=== PATIENT | female | born 1945 | race Asian ===

== ENCOUNTER 2017-11-09 19:17 | Emergency (ER) | payer MEDICARE, MEDICAID ==
[~2017-11-09] VITALS: Ht 165.1 cm; Wt 81.6 kg
[2017-11-09] MEDS ORDERED: cloNIDine HCL 0.1 MG TAB ONE (19:40)
[2017-11-09] MEDS ORDERED: cloNIDine HCL 0.1 MG TAB PO ONE (19:45)
[2017-11-09 22:12] VITALS: BP 181/61
[2017-11-09] MEDS ORDERED: MORPHINE SULFATE 8mg/ml INJ SDV IM ONE (22:15)
[2017-11-09] MEDS ORDERED: ONDANSETRON HCL 4 MG/2 ML VIAL IM ONE (22:45)
[2017-11-09] MEDS ORDERED: ONDANSETRON HCL 4 MG/2 ML VIAL ONE (22:46)
== END 2017-11-09 23:16 | disposition home or self-care (01) ==
LOC: ER 19:17
DX: M25.551 Pain in right hip (principal); E11.9 Type 2 diabetes mellitus without complications; I10 Essential (primary) hypertension; E78.00 Pure hypercholesterolemia, unspecified
CPT/HCPCS: 73502; 82962; 96372; 99284; J2270; J2405

== ENCOUNTER 2020-03-27 04:28 | Inpatient (IN) | payer MEDICARE, MEDICAID ==
[~2020-03-27] VITALS: Ht 160 cm; Wt 89.7 kg
[2020-03-27] MEDS ORDERED: NITROGLYCERIN 50MG/250ML 250 ML IV ONE (06:48)
[2020-03-27 06:51] LABS: Basophils # (auto) 0 10 ^3/uL (0-0.2); Basophils % (auto) 0.3 % (0.0-2.0); Eosinophils # (auto) 0.1 10 ^3/uL (0-0.8); Eosinophils % (auto) 1.3 % (0.0-7.0); Hematocrit 32.3 % (36.0-46.0); Hemoglobin 10.5 g/dL (12.2-16.2); Lymphocytes # (auto) 0.7 10 ^3/uL (0.4-5.4); Lymphocytes % (auto) 8.2 % (10.0-50.0); Mean Corpuscular Hemoglobin 30.9 pg (28.0-32.0); Mean Corpuscular Hgb Conc. 32.5 g/dL (32.0-36.0); Mean Corpuscular Volume 95.3 fL (80.0-100.0); Monocytes # (auto) 0.6 10 ^3/uL (0-1.3); Monocytes % (auto) 7.6 % (0.0-12.0); Neutrophils # (auto) 6.8 10 ^3/uL (1.6-8.6); Neutrophils % (auto) 82.6 % (37.0-80.0); Platelet Count (auto) 304 10^3/uL (140-450); Red Blood Cells 3.39 10^6/uL (4.0-5.20); Red Cell Distribution Width 17.6 % (11.8-14.3); White Blood Cell 8.2 10^3/uL (4.4-10.8)
[2020-03-27] MEDS ORDERED: HEPARIN SODIUM (PORCINE) 5000 UNITS/ML 1ML VIAL IV ONE (07:00)
[2020-03-27 07:08] LABS: Albumin 2.7 g/dL (3.4-5.0); Anion Gap 8 (5-15); Blood Urea Nitrogen 36 mg/dL (7-18); Calcium 8.2 mg/dL (8.5-10.1); Carbon Dioxide 27 mmol/L (21-32); Chloride 96 mmol/L (98-107); Glucose 142 mg/dL (74-106); Potassium 3.9 mmol/L (3.5-5.1); Sodium 131 mmol/L (136-145)
[2020-03-27 07:12] LABS: INR 0.92 (0.9-1.15); Partial Thromboplastin Time 27.7 sec (23.0-31.2)
[2020-03-27 07:14] LABS: Alanine Aminotransferase 29 U/L (13-56); Alkaline Phosphatase 78 U/L (45-117); Aspartate Aminotransferase 22 U/L (15-37); BUN/Creatinine Ratio 5.4; Bilirubin, Total 0.5 mg/dL (0.2-1.0); GFR African American 8 mL/min; GFR Non-African American 6 mL/min; Total Protein 6.8 g/dL (6.4-8.2)
[2020-03-27] MEDS ORDERED: ANGIOMAX 250 MG VIAL IV ONE (09:46)
[2020-03-27] MEDS ORDERED: HEPARIN SODIUM (PORCINE) 5000 UNITS/ML 1ML VIAL ONE (09:46)
[2020-03-27] MEDS ORDERED: fentaNYL CITRATE 100 MCG/2 ML VL ONE (09:47)
[2020-03-27] MEDS ORDERED: MIDAZOLAM HCL 1MG/1ML-2 ML VIAL ONE (09:47)
[2020-03-27] MEDS ORDERED: VERAPAMIL 2.5MG/ML INJ 2ML VIAL IV ONE (09:47)
[2020-03-27] MEDS ORDERED: SODIUM CHL 0.9% 50 ML ONE (09:47)
[2020-03-27] MEDS: METOPROLOL TARTRATE 25 MG TAB PO SCH ×2 (10:00→22:53)
[2020-03-27] MEDS: CLOPIDOGREL BISULFATE 75 MG TAB PO SCH (10:00)
[2020-03-27] MEDS: NIFEdipine ER 30 MG TAB PO SCH (10:00)
[2020-03-27] MEDS ORDERED: IODIXANOL 320MG/ML 100ML BTL IV ONE ×2 (10:04→10:39)
[2020-03-27] MEDS ORDERED: LIDOCAINE 2%HCL (LOCAL ANESTH.) INJ 20ML MDV ONE (10:04)
[2020-03-27] MEDS ORDERED: CLOPIDOGREL 300 MG TAB ONE (10:48)
[2020-03-27 14:00] VITALS: BP 116/59
[2020-03-27] MEDS: ASPirin 81 mg TAB PO SCH (14:19)
[2020-03-27] MEDS: RANOLAZINE ER 500 MG TAB PO SCH ×2 (14:20→22:53)
[2020-03-27 17:00] VITALS: BP 109/51
[2020-03-27] MEDS ORDERED: GABA100C9 PO (18:39)
[2020-03-27] MEDS ORDERED: ASPI325T4 PO (18:39)
[2020-03-27] MEDS ORDERED: ATOR80TA PO (18:39)
[2020-03-27] MEDS ORDERED: ISOS60TA24 PO (18:39)
[2020-03-27] MEDS ORDERED: ACET1CAP14 PO (18:39)
[2020-03-27] MEDS ORDERED: CLOP75TA28 PO (18:39)
[2020-03-27] MEDS ORDERED: FURO20TA3 PO (18:39)
[2020-03-27] MEDS ORDERED: LISI-275 PO (18:39)
[2020-03-27] MEDS ORDERED: METO25TA93 PO (18:39)
[2020-03-27] MEDS ORDERED: LEVO25TA49 PO (18:39)
[2020-03-27] MEDS ORDERED: NITR0.4S29 SL (18:47)
[2020-03-27] MEDS ORDERED: FERR-20 PO (18:47)
[2020-03-27] MEDS ORDERED: INSU1INJ19 SC (18:47)
[2020-03-27] MEDS ORDERED: RANO1000 PO (18:47)
[2020-03-27] MEDS ORDERED: TRAV0.00 EACHEYE (18:47)
[2020-03-27] MEDS ORDERED: INSU100I49 SC (18:50)
[2020-03-27 22:00] VITALS: BP_SYST 143; BP_DIAS 60; BP_DIAS 68
[2020-03-27] MEDS ORDERED: ATORVASTATIN 20 MG TAB PO SCH (22:00)
[2020-03-28 05:29] VITALS: BP 138/57
[2020-03-28] MEDS: NIFEdipine ER 30 MG TAB PO SCH (10:00)
[2020-03-28] MEDS: ASPirin 81 mg TAB PO SCH (10:21)
[2020-03-28] MEDS: METOPROLOL TARTRATE 25 MG TAB PO SCH (10:23)
[2020-03-28] MEDS: CLOPIDOGREL BISULFATE 75 MG TAB PO SCH (10:23)
[2020-03-28] MEDS: RANOLAZINE ER 500 MG TAB PO SCH (10:24)
[2020-03-28 14:30] VITALS: BP 134/68
== END 2020-03-28 15:00 | disposition home or self-care (01) | DRG 246 ==
LOC: ER 04:28 → EDBD 04:28 → CATH 1 08:20 → TELE-WESTW 12:54
PROVIDERS: ADMIT Internal Medicine; ATTEND Internal Medicine
PROC: 4A023N7 Measurement of Cardiac Sampling and Pressure, Left Heart, Percutaneous Approach (ICD-10-PCS; principal; 2020-03-27)
PROC: 027034Z Dilation of Coronary Artery, One Artery with Drug-eluting Intraluminal Device, Percutaneous Approach (ICD-10-PCS; 2020-03-27)
PROC: B2111ZZ Fluoroscopy of Multiple Coronary Arteries using Low Osmolar Contrast (ICD-10-PCS; 2020-03-27)
PROC: B2151ZZ Fluoroscopy of Left Heart using Low Osmolar Contrast (ICD-10-PCS; 2020-03-27)
DX: T82.855A Stenosis of coronary artery stent, initial encounter (principal); I21.4 Non-ST elevation (NSTEMI) myocardial infarction; N18.6 End stage renal disease; E87.1 Hypo-osmolality and hyponatremia; I12.0 Hypertensive chronic kidney disease with stage 5 chronic kidney disease or end stage renal disease; D63.8 Anemia in other chronic diseases classified elsewhere; E03.9 Hypothyroidism, unspecified; E11.22 Type 2 diabetes mellitus with diabetic chronic kidney disease; E66.9 Obesity, unspecified; E78.5 Hyperlipidemia, unspecified; I25.10 Atherosclerotic heart disease of native coronary artery without angina pectoris; Y83.1 Surgical operation with implant of artificial internal device as the cause of abnormal reaction of the patient, or of later complication, without mention of misadventure at the time of the procedure; Z79.4 Long term (current) use of insulin; Z99.2 Dependence on renal dialysis; Z68.28 Body mass index [BMI] 28.0-28.9, adult
CPT/HCPCS: 36415; 36600; 71045; 80053; 82805; 83735; 83880; 84443; 84484; 85025; 85379; 85610; 85730; 87081; 92928; 93005; 93306; 93458; 99152; 99153; 99291; C1874; C1887; G0378; J2250; Q9967